=== PATIENT | female | born 1990 ===

== ENCOUNTER 2023-01-11 12:47 | Emergency (ER) | payer OTHER, SELFPAY ==
--- NOTE | ~2023-01-11 | US_ITS ---
Examination: Ultrasound OB limited Clinical indications: Vaginal bleeding and cramping. LMP 08/27/2022. COMPARISON: None. TECHNIQUE: Transabdominal imaging of pelvis is performed. FINDINGS: There are single live intrauterine fetus in cephalic presentation and posterior placenta grade 1. heart rate measures 147 beats per minute. On measurements, Biparietal diameter is 4.48 cm corresponding 19 weeks 4 days, Occipital frontal diameter measures 5.94 seen corresponding 20 weeks 2 days, Head circumference measures 16.81 cm corresponding to 19 weeks 4 days, Abdominal circumference measures 14.43 cm corresponding to 19 weeks 6 days, Femur length measures 3.09 cm corresponding to 19 weeks 5 days, The estimated gestational age by today's measurements is 19 weeks 5 days. By LMP is 19 weeks 4 days. On anatomy survey there is visualization of kidneys, bladder, stomach and four-chamber heart. Estimated weight is 0 lbs. 11 oz. corresponding to 50%. The cervix is closed and measures 4.25 cm in length. The right ovary is not seen. The left ovary is visualized and measures 3.3 x 1.2 x 1.8 cm. US/US OB limited IMPRESSION: Single live intrauterine fetus with an ultrasound gestational age of 19 weeks and 5 days. The estimated date of delivery is 06/02/2023.
[2023-01-11 13:03] VITALS: BP 135/70; PULSE 102; RESP 18; TEMP 37; O2SAT 99; BMI 33.8
--- NOTE | 2023-01-11 13:06 | ED_ITS ---
HPI - General Adult General Chief complaint: Vaginal Bleeding Stated complaint: 19 wks preg/Bleeding Time Seen by Provider: 01/11/23 14:17 Source: patient Mode of arrival: ambulatory Limitations: no limitations History of Present Illness HPI narrative: 32-year-old female currently 19 weeks presents the ER for evaluation of intermittent lower abdominal pain and vaginal bleeding for the last 4 days. Patient reports that 4 days ago she started with light spotting, only pain when she wiped after using the toilet. She states on Wednesday she started bleeding bright red blood when she use the bathroom and slightly in her pain anywhere between uses of the toilet. She passed a small clot. She also reports on Wednesday she developed intermittent lower abdominal cramping and pelvic pressure. She states it comes and goes. She tried to call her OBGYN from [facility] but was unable to get a hold of anyone. She came to the ER for further evaluation as her symptoms persisted today. MD complaint: Lower abdominal pain and vaginal bleeding in Onset (ago): day(s) (4) Location: abdomen and pelvis Radiation: non-radiation Severity: moderate Quality: aching Pain Consistency: intermittent Relieving factors: none Exacerbating factors: none Associated symptoms: denies other symptoms Treatments prior to arrival: none Related Data Allergies Allergy/AdvReac Type Severity Reaction Status Date / Time No Known Allergies Allergy Verified 01/11/23 13:03 Review of Systems Review of Systems: Yes all other systems are reviewed and are negative [facility] Social History Social History Smoked in Last 30 Days: No Use of substances other than those prescribed or required for medical reasons: No Physical Exam ED Vital Signs: Vital Signs - 24 hr 01/11/23 13:03 01/11/23 15:34 Temperature 98.6 F 98.5 F Pulse Rate 102 H 82 Respiratory Rate 18 16 Blood Pressure 135/70 123/67 Pulse Oximetry 99 100 Oxygen Delivery Method Room Air Room Air BMI result Body Mass Index 33.8 Appearance: Alert. Oriented X3. No acute distress. Head: normocephalic, atraumatic. Eyes: Pupils equal, round and reactive to light. ENT: Pharynx normal. No tonsillar swelling or exudate. Neck: Normal inspection. Neck supple. CVS: Normal heart rate and rhythm. Pulses normal. Respiratory: No respiratory distress. Breath sounds normal. Abdomen: Soft, gravid uterus to the level of the umbilicus. non-tender. normal active+BS x4. Skin: Skin warm and dry. Normal skin color. Normal skin turgor. No rashes. Extremities: No lower extremity edema. No joint swelling. Neuro/psych: Oriented X 3. No motor deficit. No sensory deficit. CN II-XII intact. Normal speech and cognition. Course Course Course Narrative: RME: 19 weeks with vaginal bleeding and lower abdominal cramping. labs and US ordered. patient is Medical Decision Making Medical Decision Making [facility] Narrative: 32-year-old who is currently 19 weeks 5 days presents to the ER for evaluation of vaginal bleeding, pelvic pressure, lower abdominal cramping intermittently for the last 4 days. She is Rh positive. She has mild anemia on her lab work. Ultrasound shows single live intrauterine fetus with heart rate in the 140s. Cervix is closed. Case was discussed with OBGYN Dr. Macias who is recommending transfer to [facility] for monitoring. Patient updated on plan of care. [facility] paged for transfer at 04:00 o'clock. Differential Diagnosis Differential Diagnoses: The differential diagnosis associated with the presentation includes threatened , subchorionic hemorrhage, cervicitis, UTI, STI Admission/Observation Consideration of admission/observation: Escalation of care including ad mission/observation considered Vaginal bleeding in 2nd trimester requiring higher level of care and closer monitoring Consult Healthcare Provider Management of the patient was discussed with: Truck Sales Manager Dr. Macias recommending transfer to [facility] for monitoring Lab Data [facility] Lab Attestation statement: I reviewed the patient's lab results. 01/11/23 13:18 01/11/23 13:18 Labs: Lab Results 01/11/23 01/11/23 01/11/23 Range/Units 13:18 13:18 13:18 WBC 9.8 (4.8-10.8) X10*3/uL RBC 3.91 L (4.20-5.50) X10*6/uL Hgb 11.2 L (12.0-16.0) g/dl Hct 34.5 L (37.0-47.0) % MCV 88.2 (80.0-98.0) fL MCH 28.6 (27.0-33.0) pg MCHC 32.5 (31.0-35.0) g/dl RDW 12.6 (11.0-16.0) % Plt Count 308 (160-400) X10*3/uL MPV 9.0 L (9.4-12.3) fL Immature Gran % (Auto) 0.4 (0.0-0.4) % Neut % (Auto) 73.1 H (45-73) % Lymph % (Auto) 19.9 L (20-40) % [place] % (Auto) 6.2 (2-11) % Eos % (Auto) 0.2 (0-4) % Baso % (Auto) 0.2 (0-2) % Lymph # (Auto) 1.9 (1.2-4.9) X10*3/uL [place] # (Auto) 0.6 (0.1-1.2) X10*3/uL Eos # (Auto) 0.0 (0.0-0.4) X10*3/uL Baso # (Auto) 0.0 (0.0-0.2) X10*3/uL Abs Immat Gran (auto) 0.04 H (0.00-0.03) X10*3/uL Absolute Neuts (auto) 7.1 (2.0-8.3) x10*3/uL Absolute Nucleated RBC 0.000 (0.0-0.012) X10*3/uL Nucleated RBC % (auto) 0.0 (0.0-0.2) /100WBC PT 11.0 (10.0-13.1) SEC INR 1.0 (0.9-1.1) APTT 29.4 (26.0-36.4) SEC Sodium 139 (135-145) mmol/L Potassium 3.8 (3.3-5.1) mmol/L Chloride 108 (96-108) mmol/L Carbon Dioxide 21 L (22-29) mmol/L Anion Gap 14 (12-20) BUN 5 L (9-16) mg/dL Creatinine 0.64 (0.5-1.4) mg/dL Estim Creat Clear Calc 153.1 Estimated GFR > 60 Random Glucose 110 (60-115) mg/dL Calcium 9.2 (8.4-10.2) mg/dL Total Bilirubin 0.2 (0.0-1.0) mg/dL AST 11 (5-31) U/L ALT 9 (0-31) U/L Alkaline Phosphatase 72 (39-117) U/L Total Protein 6.9 (6.5-8.0) g/dL Albumin 3.4 L (3.5-5.0) g/dL Beta HCG, Quant 20471 mIU/mL Blood Type 01/11/23 Range/Units 13:18 WBC (4.8-10.8) X10*3/uL RBC (4.20-5.50) X10*6/uL Hgb (12.0-16.0) g/dl Hct (37.0-47.0) % MCV (80.0-98.0) fL MCH (27.0-33.0) pg MCHC (31.0-35.0) g/dl RDW (11.0-16.0) % Plt Count (160-400) X10*3/uL MPV (9.4-12.3) fL Immature Gran % (Auto) (0.0-0.4) % Neut % (Auto) (45-73) % Lymph % (Auto) (20-40) % [place] % (Auto) (2-11) % Eos % (Auto) (0-4) % Baso % (Auto) (0-2) % Lymph # (Auto) (1.2-4.9) X10*3/uL [place] # (Auto) (0.1-1.2) X10*3/uL Eos # (Auto) (0.0-0.4) X10*3/uL Baso # (Auto) (0.0-0.2) X10*3/uL Abs Immat Gran (auto) (0.00-0.03) X10*3/uL Absolute Neuts (auto) (2.0-8.3) x10*3/uL Absolute Nucleated RBC (0.0-0.012) X10*3/uL Nucleated RBC % (auto) (0.0-0.2) /100WBC PT (10.0-13.1) SEC INR (0.9-1.1) APTT (26.0-36.4) SEC Sodium (135-145) mmol/L Potassium (3.3-5.1) mmol/L Chloride (96-108) mmol/L Carbon Dioxide (22-29) mmol/L Anion Gap (12-20) BUN (9-16) mg/dL Creatinine (0.5-1.4) mg/dL Estim Creat Clear Calc Estimated GFR Random Glucose (60-115) mg/dL Calcium (8.4-10.2) mg/dL Total Bilirubin (0.0-1.0) mg/dL AST (5-31) U/L ALT (0-31) U/L Alkaline Phosphatase (39-117) U/L Total Protein (6.5-8.0) g/dL Albumin (3.5-5.0) g/dL Beta HCG, Quant mIU/mL Blood Type O Positive Independent Interpretation I performed an independent interpretation of an: Ultrasound Interpretation: agree w/ radiology read Radiology Impression Discussion of test interpretation with radiology: I have reviewed the radiologist's reading. Radiologist Impression: ?US/US OB limited IMPRESSION: Single live intrauterine fetus with an ultrasound gestational age of 19 weeks and 5 days. The estimated date of delivery is 06/02/2023. Prescription Management I considered prescription management with: Antibiotic Critical Care Time Critical Care Time Critical Care Time: Yes Total Critical Care Time: 36 Attestation: I have personally provided critical care time exclusive of time spent on separately billable procedures. Time includes review of lab data, radiology res ults, discussion with consultants, and monitoring for potential decompensation. Intervention performed as documented. Discharge Plan Discharge Clinical Impression: Vaginal bleeding Patient Disposition: General Acute Hospital Transfer Details: [facility]
[2023-01-11 13:22] LABS: MANUAL DIFF FLAG NO
[2023-01-11 13:24] LABS: Basophils Percent Auto 0.2 % (0-2); Eosinophils Percent Auto 0.2 % (0-4); Hematocrit 34.5 % (37.0-47.0); Hemoglobin 11.2 g/dl (12.0-16.0); Imm Gran Abs Auto 0.04 X10*3/uL (0.00-0.03); Imm Gran Pct Auto 0.4 % (0.0-0.4); Lymphocytes Absolute Auto 1.9 X10*3/uL (1.2-4.9); Lymphocytes Percent Auto 19.9 % (20-40); Mean Corpuscular HGB Conc 32.5 g/dl (31.0-35.0); Mean Corpuscular Hemoglobin 28.6 pg (27.0-33.0); Mean Corpuscular Volume 88.2 fL (80.0-98.0); Monocytes Absolute Auto 0.6 X10*3/uL (0.1-1.2); Monocytes Percent Auto 6.2 % (2-11); Neutrophils Absolute Auto 7.1 x10*3/uL (2.0-8.3); Neutrophils Percent Auto 73.1 % (45-73); Platelet Count 308 X10*3/uL (160-400); Red Blood Count 3.91 X10*6/uL (4.20-5.50); Red Cell Distribution Width 12.6 % (11.0-16.0); White Blood Count 9.8 X10*3/uL (4.8-10.8)
[2023-01-11 13:32] LABS: Partial Thromboplastin Time 29.4 SEC (26.0-36.4)
[2023-01-11 13:49] LABS: Alanine Aminotransferase 9 U/L (0-31); Albumin Level 3.4 g/dL (3.5-5.0); Alkaline Phosphatase 72 U/L (39-117); Anion Gap 14 (12-20); Aspartate Amino Transferase 11 U/L (5-31); Bilirubin Total 0.2 mg/dL (0.0-1.0); Blood Urea Nitrogen 5 mg/dL (9-16); Calcium 9.2 mg/dL (8.4-10.2); Carbon Dioxide 21 mmol/L (22-29); Chloride 108 mmol/L (96-108); Creatinine Clr Calc Pharmacy 153.1; Estimated Glomerular Filt Rate > 60; Glucose Random 110 mg/dL (60-115); Potassium 3.8 mmol/L (3.3-5.1); Sodium 139 mmol/L (135-145); Total Protein 6.9 g/dL (6.5-8.0)
[2023-01-11 14:09] LABS: HCG Quantitative 23509 mIU/mL
[2023-01-11 15:34] VITALS: BP 123/67; PULSE 82; RESP 16; TEMP 36.9; O2SAT 100
--- NOTE | 2023-01-11 15:39 | PC.NURSE ---
alert and oriented, resp even and unlabored, vss. approx 19 weeks reporting vaginal bleeding when wiping with associated abdominal cramping.
--- NOTE | 2023-01-11 16:06 | PC.NURSE ---
plan for pt transfer, iv established and covid swab obtained
--- NOTE | 2023-01-11 16:08 | MHC.EDTECH ---
Brought patient pillow.
--- NOTE | 2023-01-11 16:25 | P.CONOB_ITS ---
OB Consult Note - [facility] Data Service Date: 01/11/23 Primary Care Provider: Unknown Physician Narrative 16:26 Late entry note I was consulted on Catie Francis at 15:43, the patient is a 32 year old currently at 19 weeks presented to the ER complaining of intermittent lower abdominal pain associated with vaginal bleeding for the last 4 days.? The patient reports that 4 days ago she started with light spotting, which got worse get heavier and started having crampy abdominal pain. She tried to call her OBGYN at [facility] but was unable to get a hold of anyone.? The following workup was done the emergency room H&H 12.5/34.5, O positive, heart rate 140's Meds Allergies Allergy/AdvReac Type Severity Reaction Status Date / Time No Known Allergies Allergy Verified 01/11/23 13:03 OB Physical Exam Physical Exam Additional Comments: Reported by TRINITY Gunn as the following; Abdomen: Soft, gravid uterus to the level of the umbilicus. non-tender. normal active+BS x4. heart rate 140's OB Consult Results Labs 01/11/23 13:18 01/11/23 13:18 Labs: Short CBC 01/11/23 Range/Units 13:18 WBC 9.8 (4.8-10.8) X10*3/uL Hgb 11.2 L (12.0-16.0) g/dl Hct 34.5 L (37.0-47.0) % Plt Count 308 (160-400) X10*3/uL BMP 01/11/23 13:18 Sodium 139 Potassium 3.8 Chloride 108 Carbon Dioxide 21 L BUN 5 L Creatinine 0.64 Calcium 9.2 Liver Function 01/11/23 Range/Units 13:18 Total Bilirubin 0.2 (0.0-1.0) mg/dL AST 11 (5-31) U/L ALT 9 (0-31) U/L Alkaline Phosphatase 72 (39-117) U/L Albumin 3.4 L (3.5-5.0) g/dL OB - CN: A/P Assessment and Plan (1) Vaginal bleeding: Status: Acute Plan Recommended the following: Transfer to [facility] for further management since there is no maternity unit available at [facility] Time Spent With Patient Time: Total time managing care of this patient today ____ minutes.
[2023-01-11 16:37] LABS: Appearance Urine Cloudy; Color Urine Yellow; Glucose Urine UA Negative (Negative); Leukocyte Esterase Urine Large (3+) (Negative); Nitrite Urine Negative (Negative); UMIC TRIGGER UACC YES; Urine Blood Moderate (2+) (Negative); Urine Ketones Negative (Negative); Urine Protein Negative (Neg-Trace)
[2023-01-11 16:38] LABS: UPreg QC Valid YES; Urine Pregnancy POSITIVE (NEGATIVE)
[2023-01-11 16:39] LABS: IDNOW Serial# 08D9AD1C
[2023-01-11 16:40] LABS: COVID-19 Test Negative (Negative)
[2023-01-11 16:52] LABS: Bacteria Urine 2+ (None Seen); Hyaline Casts Urine 0-2 /LPF (0-2); UACC Culture Trigger YES; WBC Urine 21-50 /HPF (0-5)
--- NOTE | 2023-01-11 17:08 | ED.GENADULT ---
HPI - General Adult General Chief complaint: Vaginal Bleeding Stated complaint: 19 wks preg/Bleeding Time Seen by Provider: 01/11/23 14:17 Source: patient Mode of arrival: ambulatory Limitations: no limitations History of Present Illness Location: abdomen and pelvis Quality: aching Relieving factors: none Exacerbating factors: none Associated symptoms: denies other symptoms Treatments prior to arrival: none Related Data Allergies Allergy/AdvReac Type Severity Reaction Status Date / Time No Known Allergies Allergy Verified 01/11/23 13:03 [facility] Social History Social History Smoked in Last 30 Days: No Use of substances other than those prescribed or required for medical reasons: No Advance Directives: No Advance Directives Information Provided: Yes Physical Exam ED Vital Signs: Vital Signs - 24 hr 01/11/23 13:03 01/11/23 15:34 Temperature 98.6 F 98.5 F Pulse Rate 102 H 82 Respiratory Rate 18 16 Blood Pressure 135/70 123/67 Pulse Oximetry 99 100 Oxygen Delivery Method Room Air Room Air BMI result Body Mass Index 33.8 Course Reevaluation(s) Reevaluation #1: Patient received in sign-out at change of shift pending call back from [facility] to discuss transfer. Discussed with [facility] transfer line. I discussed with Dr. Le will accept transfer of care for the patient. The transfer and will call back with a room number. I discussed this with the patient to update her. Time: 17:08 Medical Decision Making Lab Data 01/11/23 13:18 01/11/23 13:18 Labs: Lab Results 01/11/23 01/11/23 01/11/23 Range/Units 13:18 13:18 13:18 WBC 9.8 (4.8-10.8) X10*3/uL RBC 3.91 L (4.20-5.50) X10*6/uL Hgb 11.2 L (12.0-16.0) g/dl Hct 34.5 L (37.0-47.0) % MCV 88.2 (80.0-98.0) fL MCH 28.6 (27.0-33.0) pg MCHC 32.5 (31.0-35.0) g/dl RDW 12.6 (11.0-16.0) % Plt Count 308 (160-400) X10*3/uL MPV 9.0 L (9.4-12.3) fL Immature Gran % (Auto) 0.4 (0.0-0.4) % Neut % (Auto) 73.1 H (45-73) % Lymph % (Auto) 19.9 L (20-40) % [place] % (Auto) 6.2 (2-11) % Eos % (Auto) 0.2 (0-4) % Baso % (Auto) 0.2 (0-2) % Lymph # (Auto) 1.9 (1.2-4.9) X10*3/uL [place] # (Auto) 0.6 (0.1-1.2) X10*3/uL Eos # (Auto) 0.0 (0.0-0.4) X10*3/uL Baso # (Auto) 0.0 (0.0-0.2) X10*3/uL Abs Immat Gran (auto) 0.04 H (0.00-0.03) X10*3/uL Absolute Neuts (auto) 7.1 (2.0-8.3) x10*3/uL Absolute Nucleated RBC 0.000 (0.0-0.012) X10*3/uL Nucleated RBC % (auto) 0.0 (0.0-0.2) /100WBC PT 11.0 (10.0-13.1) SEC INR 1.0 (0.9-1.1) APTT 29.4 (26.0-36.4) SEC Sodium 139 (135-145) mmol/L Potassium 3.8 (3.3-5.1) mmol/L Chloride 108 (96-108) mmol/L Carbon Dioxide 21 L (22-29) mmol/L Anion Gap 14 (12-20) BUN 5 L (9-16) mg/dL Creatinine 0.64 (0.5-1.4) mg/dL Estim Creat Clear Calc 153.1 Estimated GFR > 60 Random Glucose 110 (60-115) mg/dL Calcium 9.2 (8.4-10.2) mg/dL Total Bilirubin 0.2 (0.0-1.0) mg/dL AST 11 (5-31) U/L ALT 9 (0-31) U/L Alkaline Phosphatase 72 (39-117) U/L Total Protein 6.9 (6.5-8.0) g/dL Albumin 3.4 L (3.5-5.0) g/dL Beta HCG, Quant 38739 mIU/mL Urine Color Urine Appearance Urine pH (5.0-9.0) Ur Specific [place] (1.005-1.025) Urine Protein (Neg-Trace) mg/dL Urine Glucose (UA) (Negative) mg/dL Urine Ketones (Negative) mg/dL Urine Blood (Negative) Urine Nitrite (Negative) Ur Leukocyte Esterase (Negative) Urine RBC (0-2) /HPF Urine WBC (0-5) /HPF Ur Squamous Epith Cells (0-2) /HPF Urine Bacteria (None Seen) Hyaline Casts (0-2) /LPF Urine Test (NEGATIVE) COVID-19 (CYNTHIA) (Negative) COVID-19 Clin Com Blood Type 01/11/23 01/11/23 01/11/23 Range/Units 13:18 15:56 16:28 WBC (4.8-10.8) X10*3/uL RBC (4.20-5.50) X10*6/uL Hgb (12.0-16.0) g/dl Hct (37.0-47.0) % MCV (80.0-98.0) fL MCH (27.0-33.0) pg MCHC (31.0-35.0) g/dl RDW (11.0-16.0) % Plt Count (160-400) X10*3/uL MPV (9.4-12.3) fL Immature Gran % (Auto) (0.0-0.4) % Neut % (Auto) (45-73) % Lymph % (Auto) (20-40) % [place] % (Auto) (2-11) % Eos % (Auto) (0-4) % Baso % (Auto) (0-2) % Lymph # (Auto) (1.2-4.9) X10*3/uL [place] # (Auto) (0.1-1.2) X10*3/uL Eos # (Auto) (0.0-0.4) X10*3/uL Baso # (Auto) (0.0-0.2) X10*3/uL Abs Immat Gran (auto) (0.00-0.03) X10*3/uL Absolute Neuts (auto) (2.0-8.3) x10*3/uL Absolute Nucleated RBC (0.0-0.012) X10*3/uL Nucleated RBC % (auto) (0.0-0.2) /100WBC PT (10.0-13.1) SEC INR (0.9-1.1) APTT (26.0-36.4) SEC Sodium (135-145) mmol/L Potassium (3.3-5.1) mmol/L Chloride (96-108) mmol/L Carbon Dioxide (22-29) mmol/L Anion Gap (12-20) BUN (9-16) mg/dL Creatinine (0.5-1.4) mg/dL Estim Creat Clear Calc Estimated GFR Random Glucose (60-115) mg/dL Calcium (8.4-10.2) mg/dL Total Bilirubin (0.0-1.0) mg/dL AST (5-31) U/L ALT (0-31) U/L Alkaline Phosphatase (39-117) U/L Total Protein (6.5-8.0) g/dL Albumin (3.5-5.0) g/dL Beta HCG, Quant mIU/mL Urine Color Yellow Urine Appearance Cloudy Urine pH 6.0 (5.0-9.0) Ur Specific [place] 1.010 (1.005-1.025) Urine Protein Negative (Neg-Trace) mg/dL Urine Glucose (UA) Negative (Negative) mg/dL Urine Ketones Negative (Negative) mg/dL Urine Blood Moderate (2+) H (Negative) Urine Nitrite Negative (Negative) Ur Leukocyte Esterase Large (3+) H (Negative) Urine RBC 3-5 H (0-2) /HPF Urine WBC 21-50 H (0-5) /HPF Ur Squamous Epith Cells 6-10 (0-2) /HPF Urine Bacteria 2+ (None Seen) Hyaline Casts 0-2 (0-2) /LPF Urine Test (NEGATIVE) COVID-19 (CYNTHIA) Negative (Negative) COVID-19 Clin Com See Note Blood Type O Positive 01/11/23 Range/Units 16:28 WBC (4.8-10.8) X10*3/uL RBC (4.20-5.50) X10*6/uL Hgb (12.0-16.0) g/dl Hct (37.0-47.0) % MCV (80.0-98.0) fL MCH (27.0-33.0) pg MCHC (31.0-35.0) g/dl RDW (11.0-16.0) % Plt Count (160-400) X10*3/uL MPV (9.4-12.3) fL Immature Gran % (Auto) (0.0-0.4) % Neut % (Auto) (45-73) % Lymph % (Auto) (20-40) % [place] % (Auto) (2-11) % Eos % (Auto) (0-4) % Baso % (Auto) (0-2) % Lymph # (Auto) (1.2-4.9) X10*3/uL [place] # (Auto) (0.1-1.2) X10*3/uL Eos # (Auto) (0.0-0.4) X10*3/uL Baso # (Auto) (0.0-0.2) X10*3/uL Abs Immat Gran (auto) (0.00-0.03) X10*3/uL Absolute Neuts (auto) (2.0-8.3) x10*3/uL Absolute Nucleated RBC (0.0-0.012) X10*3/uL Nucleated RBC % (auto) (0.0-0.2) /100WBC PT (10.0-13.1) SEC INR (0.9-1.1) APTT (26.0-36.4) SEC Sodium (135-145) mmol/L Potassium (3.3-5.1) mmol/L Chloride (96-108) mmol/L Carbon Dioxide (22-29) mmol/L Anion Gap (12-20) BUN (9-16) mg/dL Creatinine (0.5-1.4) mg/dL Estim Creat Clear Calc Estimated GFR Random Glucose (60-115) mg/dL Calcium (8.4-10.2) mg/dL Total Bilirubin (0.0-1.0) mg/dL AST (5-31) U/L ALT (0-31) U/L Alkaline Phosphatase (39-117) U/L Total Protein (6.5-8.0) g/dL Albumin (3.5-5.0) g/dL Beta HCG, Quant mIU/mL Urine Color Urine Appearance Urine pH (5.0-9.0) Ur Specific [place] (1.005-1.025) Urine Protein (Neg-Trace) mg/dL Urine Glucose (UA) (Negative) mg/dL Urine Ketones (Negative) mg/dL Urine Blood (Negative) Urine Nitrite (Negative) Ur Leukocyte Esterase (Negative) Urine RBC (0-2) /HPF Urine WBC (0-5) /HPF Ur Squamous Epith Cells (0-2) /HPF Urine Bacteria (None Seen) Hyaline Casts (0-2) /LPF Urine Test POSITIVE H (NEGATIVE) COVID-19 (CYNTHIA) (Negative) COVID-19 Clin Com Blood Type Discharge Plan Discharge Clinical Impression: Vaginal bleeding Patient Disposition: [facility] Transfer Details: [facility] WE
[2023-01-11 18:19] VITALS: BP 100/59; PULSE 78; RESP 16; TEMP 36.9; O2SAT 99
== END 2023-01-11 18:55 | disposition short-term general hospital (02) ==
PROVIDERS: Physician Assistant; Emergency Provider Emergency Medicine
DX: O20.9 Hemorrhage in early pregnancy, unspecified (principal); Z3A.20 20 weeks gestation of pregnancy; Z20.822 Contact with and (suspected) exposure to COVID-19; Z20.828 Contact with and (suspected) exposure to other viral communicable diseases; Z79.899 Other long term (current) drug therapy
CPT/HCPCS: 36415; 76815; 80053; 81001; 81025; 84702; 85025; 85610; 85730; 86900; 86901; 87086; 87635; 99285